=== PATIENT | female | born 1945 | race Caucasian/White ===

== ENCOUNTER 2021-09-27 19:52 | Emergency (ER) | payer OTHER ==
[~2021-09-27] VITALS: Ht 170.2 cm; Wt 59.9 kg
[~2021-09-27 19:52] MED LIST: GEM600T GT; OMEP20CA74 OR; TEMA30CA PO
[2021-09-27] MEDS ORDERED: ACETAMINOPHEN 500 MG TAB PO ONE (20:30)
[2021-09-27 22:05] LABS: Basophils # (auto) 0.1 10 ^3/uL (0-0.2); Basophils % (auto) 0.5 % (0.0-2.0); Eosinophils # (auto) 0 10 ^3/uL (0-0.8); Lymphocytes # (auto) 1.1 10 ^3/uL (0.4-5.4); Mean Corpuscular Hgb Conc. 32.6 g/dL (32.0-36.0); Mean Corpuscular Volume 81.7 fL (80.0-100.0); Neutrophils # (auto) 13.7 10 ^3/uL (1.6-8.6)
[2021-09-27 22:07] LABS: Eosinophils % (auto) 0.3 % (0.0-7.0); Hematocrit 34.3 % (36.0-46.0); Hemoglobin 11.2 g/dL (12.2-16.2); Lymphocytes % (auto) 7.1 % (10.0-50.0); Mean Corpuscular Hemoglobin 26.6 pg (28.0-32.0); Monocytes # (auto) 1.1 10 ^3/uL (0-1.3); Monocytes % (auto) 6.6 % (0.0-12.0); Neutrophils % (auto) 85.5 % (37.0-80.0); Red Cell Distribution Width 14.2 % (11.8-14.3)
[2021-09-27 22:29] LABS: Albumin 2.9 g/dL (3.4-5.0); Potassium 4.1 mmol/L (3.5-5.1)
[2021-09-27 22:31] LABS: BUN/Creatinine Ratio 14.5
[2021-09-27 22:34] LABS: Bilirubin, Total 0.5 mg/dL (0.2-1.0)
[2021-09-27 23:48] LABS: Urine Bacteria FEW /hpf (None Seen); Urine Blood TRACE /uL (Negative); Urine Hyaline Cast MOD /lpf (0 - 2); Urine Mucus FEW (None Seen); Urine Specific Gravity 1.017 (1.001-1.035); Urine WBC 2 /hpf (0 - 5)
[2021-09-28 05:06] VITALS: BP 111/49
[2021-09-28] MEDS ORDERED: HYDROcodone-ACET 10/325MG TAB PO ONE (05:45)
[2021-09-28] MEDS ORDERED: DexAMETHasone SOD PHOS 10MG/1ML VIAL INJ IV ONE (06:30)
== END 2021-09-28 08:26 | disposition home or self-care (01) ==
LOC: ER 19:54
DX: R07.89 Other chest pain (principal); I10 Essential (primary) hypertension; Z20.822 Contact with and (suspected) exposure to COVID-19
CPT/HCPCS: 36415; 71045; 80053; 81001; 83605; 85025; 87040; 87086; 87088; 87186; 87426; 96374; 99285; J1100